=== PATIENT | male | born 1995 | race Caucasian/White ===

== ENCOUNTER 2018-11-11 23:35 | Emergency (ER) | payer BC ==
[2018-11-11] MEDS ORDERED: fentaNYL 100 MCG/2 ML INJ ONE (23:43)
[2018-11-11] MEDS ORDERED: fentaNYL 100 MCG/2 ML INJ NASAL ONE (23:45)
[2018-11-11] MEDS ORDERED: LORazepam 2 MG/ML INJ ONE (23:49)
--- NOTE | 2018-11-11 23:51 | EDPHY ---
H & P Source: Patient Exam Limitations: No limitations Time Seen by Provider: 11/11/18 23:41 HPI/ROS: HPI: This is a 23-year-old male who presents with Chief Complaint: Left shoulder dislocation Location: Left shoulder Quality: Dislocation Duration: Prior to arrival Signs and Symptoms: No bleeding, no radiation, no numbness, no weakness, no tingling, no incontinence, + decreased range of motion, no swelling, + pain, no fever Timing: Acute on chronic Severity: Moderate to severe Context: Patient is student at [employer], left-hand dominant, presents with shoulder dislocation of the left side when he reached up to grab something. He reports that he had left shoulder surgery last year due to recurrent dislocations. He reports that it has been dislocated twice since his surgery. He denies any actual trauma, paresthesias, radiation. Modifying Factors: None Comment: ROS: A comprehensive 10 system review of systems is otherwise negative aside from elements mentioned in the history of present illness. MEDICAL/SURGICAL/SOCIAL HISTORY: Medical history: Generally healthy. Does not take any regular medications. Surgical history: Denies Social history: Student at [employer]. Drinks alcohol and smokes marijuana. Current every day tobacco user. CONSTITUTIONAL: Moderate distress, young adult white male, awake and alert, no obvious distress HEENT: Atraumatic and normocephalic. NECK: supple, no midline tenderness Cardiovascular: Normal S1/S2, regular rate, regular rhythm, without murmur rub or gallop. PULMONARY/CHEST: Symmetrical and nontender. Clear to auscultation bilaterally. Good air movement. No accessory muscle usage. ABDOMEN: Soft, nondistended, nontender. EXTREMITIES: 2/2 pulses, strength 5/5, left shoulder lax normal rounded contour with increased gap at the SA joint; left arm held at the elbow at 90 flexion with inability to touch ipsilateral arm with left arm. DIP/PIP/MCP flexion/extension intact with good light touch sensation. no deformities, no clubbing, no cyanosis or edema. NEUROLOGICAL: no focal neuro deficits. GCS 15. Light touch sensation intact. SKIN: Warm and dry, no erythema. no rash. Good capillary refill. ([place] Constitutional: Initial Vital Signs Temperature (C) 36.7 C 11/11/18 23:40 Heart Rate 96 11/11/18 23:40 Respiratory Rate 22 H 03/18/19 23:40 Blood Pressure 157/100 H 11/11/18 23:40 O2 Sat (%) 96 11/11/18 23:40 O2 Delivery Mode [Post Nasal Cannula Procedure 4th] O2 Delivery Mode [Post Nasal Cannula Procedure 3rd] O2 Delivery Mode [Post Non-Rebreather Mask Procedure 2nd] O2 Delivery Mode [Post Non-Rebreather Mask Procedure 1st] O2 Delivery Mode [Procedural Non-Rebreather Mask 6th] O2 Delivery Mode [Procedural Non-Rebreather Mask 5th] O2 Delivery Mode [Procedural Non-Rebreather Mask 4th] O2 Delivery Mode [Procedural Non-Rebreather Mask 3rd] O2 Delivery Mode [Procedural Non-Rebreather Mask 2nd] O2 Delivery Mode [Procedural Non-Rebreather Mask 1st] O2 Delivery Mode [.Immediate Non-Rebreather Mask Pre-Procedure] O2 Delivery Mode Room Air O2 (L/minute) [Post Procedure 1 4th] O2 (L/minute) [Post Procedure 2 3rd] O2 (L/minute) [Post Procedure 15 2nd] O2 (L/minute) [Post Procedure 15 1st] O2 (L/minute) [Procedural 6th] 15 O2 (L/minute) [Procedural 5th] 15 O2 (L/minute) [Procedural 4th] 15 O2 (L/minute) [Procedural 3rd] 15 O2 (L/minute) [Procedural 2nd] 15 O2 (L/minute) [Procedural 1st] 15 O2 (L/minute) [.Immediate Pre- 15 Procedure] O2 (L/minute) 3 Allergies/Adverse Reactions: No Known Allergies Allergy (Unverified 11/11/18 23:54) Home Medications: Medication Instructions Recorded Amphet Asp and D/Amphet [Adderall 10 mg PO DAILY 11/11/18 10 MG (*)] Medical Decision Making Procedures: Procedure: Procedural sedation. Indication: Left shoulder dislocation. A pre-sedation evaluation was completed on the patient just prior to the procedure. Patient is an appropriate candidate for procedural sedation with ASA class The risks of the sedation were discussed including but not limited to dysrhythmia, need for airway intervention or general anesthesia, disability, . Verbal consent obtained. A timeout was observed and patient's identity confirmed. The patient was sedated with ketamine and propofol. The patient was monitored with continuous pulse oximetry, capnography, and monitor worker. There were no complications and no significant hypoxemia. Dr. Logan and I remained at the bedside for the sedation. The total time I spent in the procedural sedation was 63 minutes. Procedure: Dislocation reduction. The dislocation of the left shoulder was reduced using Carlos technique and counter traction without complications unsuccessful attempt x2 The procedure was performed by myself. Procedure: Splint placement. A left sling was applied. After application of the splint I returned and re- examined the patient. The splint was adequately immobilizing the joint and distal to the splint the patient's circulation and sensation was intact. ([place]) ED Course/Re-evaluation: PHYSICIAN DOCUMENTATION: The patient was evaluated and managed by the Physician Air Conditioning Specialist. My co- signature indicates that I have reviewed this chart and I agree with the findings and plan of care as documented. I am the secondary supervising physician. (Zoey Logan) Vital signs reviewed and show elevated blood pressure and tachypnea upon arrival. Placed on property assessment monitor. IV access obtained and given intranasal 100 mcg of fentanyl and IV Ativan 2 mg. Attempt to reduce shoulder unsuccessful as patient unable to relax. Decision made to give conscious sedation. IV ketamine 1 mg/kg given Unsuccessful attempt to reduce. Dr. Logan at bedside and gave 200 mg of IV propofol. Patient was able to be reduce using counter traction Post reduction x-ray shows normal anatomic alignment. Placed in sling, orthopedic follow-up No signs of neurovascular compromise/tenting of skin/compartment syndrome/ extremities and joints examined above and below area of concern and are neurovascularly intact. This patient was seen under the supervision of my secondary supervising physician. I evaluated care for this patient with attending. ([place]) Differential Diagnosis: Differential diagnosis includes but is not limited to anterior dislocation, posterior dislocation, humeral head fracture, acromial clavicular joint instability. ([place]) - Data Points Medications Given: Discontinued Medications Fentanyl (Sublimaze) 100 mcg NASAL EDNOW ONE Stop: 11/11/18 23:46 Last Admin: 11/11/18 23:47 Dose: 100 mcg Sodium Chloride (Ns) 1,000 mls @ 0 mls/hr IV ONCE ONE; Wide Open PRN Reason: Protocol Stop: 11/11/18 23:54 Last Admin: 11/12/18 00:09 Dose: 1,000 mls Ketamine HCl (Ketamine) 75 mg IVP EDNOW ONE Stop: 11/11/18 23:54 Last Admin: 11/12/18 00:18 Dose: 75 mg Lorazepam (Ativan Injection) 2 mg IVP EDNOW ONE Stop: 11/11/18 23:54 Last Admin: 11/11/18 23:53 Dose: 2 mg Propofol (Diprivan) 120 mg IVP EDNOW ONE Stop: 11/12/18 00:32 Last Admin: 11/12/18 00:32 Dose: 110 mg Propofol (Diprivan) 60 mg IVP EDNOW ONE Stop: 11/12/18 00:35 Last Admin: 11/12/18 00:35 Dose: 60 mg Propofol (Diprivan) 30 mg IVP EDNOW ONE Stop: 11/12/18 00:38 Last Admin: 11/12/18 00:37 Dose: 30 mg Departure - Departure Disposition: Home, Routine, Self-Care Clinical Impression: Dislocation of shoulder, left, closed Qualifiers: Encounter type: initial encounter Qualified Code(s): S43.005A - Unspecified dislocation of left shoulder joint, initial encounter Condition: Good Instructions: Shoulder Dislocation (ED) Additional Instructions: Wear the sling continuously except shower until seen by Orthopedics. Take Tylenol 650 mg every 4 hours and/or Ibuprofen 600 mg every 8 hours with food as needed for pain. Apply ice for 30 minutes at a time; 2-3 times per day for the next 1-2 days. Follow up with Orthopedics in 5-7 days at which time they will evaluate and recommend with you if conservative management versus further imaging is indicated. Referrals: Ananda Younger MD [Medical Doctor] - As per Instructions Stand Alone Forms: School Excuse
[2018-11-11] MEDS ORDERED: LORazepam 2 MG/ML INJ IVP ONE (23:53)
[2018-11-11] MEDS ORDERED: NS 1,000 ML IV ONE (23:53)
[2018-11-11] MEDS ORDERED: KETAMINE 200 MG/20 ML VIAL IVP ONE (23:53)
[2018-11-12] MEDS ORDERED: PROPOFOL 200 MG/20 ML VIAL ONE (00:29)
[2018-11-12] MEDS ORDERED: PROPOFOL 200 MG/20 ML VIAL IVP ONE ×3 (00:31→00:37)
[2018-11-12 02:34] VITALS: BP 150/100
== END 2018-11-12 02:32 | disposition home or self-care (01) ==
PROC: 0RSKXZZ Reposition Left Shoulder Joint, External Approach (ICD-10-PCS; principal; 2018-11-11)
DX: S43.005A Unspecified dislocation of left shoulder joint, initial encounter (principal); E86.9 Volume depletion, unspecified; X50.0XXA Overexertion from strenuous movement or load, initial encounter
CPT/HCPCS: 96374; J2060; J2704; J3010